=== PATIENT | female | born 1970 | race Caucasian/White ===

== ENCOUNTER 2016-07-22 13:55 | Emergency (ER) | payer SELFPAY ==
--- NOTE | 2016-07-22 17:25 | ER Document Report ---
Addendum entered and electronically signed by CESAR BEYER FNP 12:19: Discharge - Discharge Clinical Impression: Strain of right thumb Qualifiers: Encounter type: initial encounter Qualified Code(s): S66.911A - Strain of unspecified muscle, fascia and tendon at wrist and hand level, right hand, initial encounter Condition: Stable Disposition: HOME, SELF-CARE Prescriptions: Naproxen Sodium [Naproxen Sodium ER] 500 mg PO Q12 PRN #20 tablet.sa PRN Reason: Tramadol HCl [Ultram 50 mg Tablet] 50 mg PO ASDIR PRN #10 tablet PRN Reason: Referrals: MAXIMILIANO HOUSTON MD [ACTIVE STAFF] - Follow up as needed Original Note: ED Hand/Wrist Injury - General Chief Complaint: Hand Injury Stated Complaint: POSSIBLE RIGHT HAND INJURY TRAVEL OUTSIDE OF THE [place] IN LAST 30 DAYS: No - HPI Patient complains to provider of: wirst pain Injury to: Wrist Onset: Yesterday Where: Work Timing: Constant - Related Data Allergies/Adverse Reactions: codeine [Codeine] Adverse Reaction (Verified 07/22/16 14:37) Past Medical History - General Last Menstrual Period: 06/21/16 - Social History Smoking Status: Never Smoker Cigarette use (# per day): No Chew tobacco use (# tins/day): No Frequency of alcohol use: Social Drug Abuse: None Family History: Reviewed & Not Pertinent Patient has suicidal ideation: No Patient has homicidal ideation: No Psychiatric Medical History: Reports: Hx Attention Deficit Hyperactivity Disorder Past Surgical History: Reports: Hx Section - 2, Hx Cholecystectomy, Hx Gynecologic Surgery - uterine albation, Hx Orthopedic Surgery - right shoulder, Hx Tubal Ligation - Immunizations Hx Diphtheria, Pertussis, Tetanus Vaccination: Yes Review of Systems - Review of Systems Constitutional: No symptoms reported EENT: No symptoms reported Cardiovascular: No symptoms reported Respiratory: No symptoms reported Gastrointestinal: No symptoms reported Genitourinary: No symptoms reported Female Genitourinary: No symptoms reported Musculoskeletal: Muscle pain, Other - wrist / thumb pain to right hand Skin: No symptoms reported Hematologic/Lymphatic: No symptoms reported Neurological/Psychological: No symptoms reported Physical Exam - Vital signs Vitals: Temp Pulse Resp BP Pulse Ox 98.0 F 69 18 137/92 H 100 07/22/16 14:08 07/22/16 14:08 07/22/16 14:08 07/22/16 14:08 07/22/16 14:08 Interpretation: Normal - General General appearance: Appears well, Alert - HEENT Head: Normocephalic, Atraumatic Eyes: Normal Pupils: PERRL - Respiratory Respiratory status: No respiratory distress Chest status: Nontender Breath sounds: Normal Chest palpation: Normal - Cardiovascular Rhythm: Regular Heart sounds: Normal auscultation Murmur: No - Abdominal Inspection: Normal Distension: No distension Bowel sounds: Normal Tenderness: Nontender Organomegaly: No organomegaly - Back Back: Normal, Nontender - Extremities General upper extremity: Normal inspection, Nontender, Normal color, Normal ROM , Normal temperature General lower extremity: Normal inspection, Nontender, Normal color, Normal ROM , Normal temperature, Normal weight bearing. No: Tip's sign Wrist: Tender - Right wrist Hand: Tender - Right wrist, thenar space good motion from first to second third and fourth fifth digits neurovascularly intact rapid capillary refill to all extremities - Neurological Neuro grossly intact: Yes Cognition: Normal Orientation: AAOx4 Walt Coma Scale Eye Opening: Spontaneous Walt Coma Scale Verbal: Oriented Walt Coma Scale Motor: Obeys Commands Walt Coma Scale Total: 15 Speech: Normal Motor strength normal: LUE, RUE, LLE, RLE Sensory: Normal - Psychological Associated symptoms: Normal affect, Normal mood - Skin Skin Temperature: Warm Skin Moisture: Dry Skin Color: Normal Course - Vital Signs Vital signs: Temp Pulse Resp BP Pulse Ox 98.0 F 69 18 137/92 H 100 07/22/16 14:08 07/22/16 14:07/22/16 14:07/22/16 14:08 07/22/16 14:08 - Diagnostic Test Radiology reviewed: Reports reviewed Discharge - Discharge Clinical Impression: Strain of thumb, right Disposition: HOME, SELF-CARE Prescriptions: Naproxen Sodium [Naproxen Sodium ER] 500 mg PO Q12 PRN #20 tablet.sa PRN Reason: Tramadol HCl [Ultram 50 mg Tablet] 50 mg PO ASDIR PRN #10 tablet PRN Reason: Referrals: MAXIMILIANO HOUSTON MD [ACTIVE STAFF] - Follow up as needed
[2016-07-22 18:23] VITALS: BP 99/65
== END 2016-07-22 17:35 | disposition home or self-care (01) ==
LOC: ER 13:55
DX: S66.911A Strain of unspecified muscle, fascia and tendon at wrist and hand level, right hand, initial encounter (principal); X58.XXXA Exposure to other specified factors, initial encounter; Y93.H3 Activity, building and construction; Y99.0 Civilian activity done for income or pay; M79.1 Myalgia
CPT/HCPCS: 99283

== ENCOUNTER 2016-12-22 21:38 | Emergency (ER) | payer SELFPAY ==
--- NOTE | 2016-12-22 22:27 | RADIOLOGY REPORT (SQ) ---
EXAM DESCRIPTION: CHEST PA/LAT COMPLETED DATE/TIME: 12/22/2016 10:03 pm REASON FOR STUDY: SOB COMPARISON: None. EXAM PARAMETERS: NUMBER OF VIEWS: two views TECHNIQUE: Digital Frontal and Lateral radiographic views of the chest acquired. RADIATION DOSE: NA LIMITATIONS: none FINDINGS: LUNGS AND PLEURA: No opacities, masses or pneumothorax. No pleural effusion. MEDIASTINUM AND HILAR STRUCTURES: No masses or contour abnormalities. HEART AND VASCULAR STRUCTURES: Heart normal size. No evidence for failure. BONES: No acute findings. HARDWARE: None in the chest. OTHER: No other significant finding. IMPRESSION: NO SIGNIFICANT RADIOGRAPHIC FINDING IN THE CHEST. TECHNICAL DOCUMENTATION: JOB ID: [id number] [employer]- All Rights Reserved
[2016-12-23] MEDS ORDERED: ALBUTEROL SULFATE 0.083% NEB 2.5 MG/3 ML AMPUL NEB ONE (00:30)
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
[2016-12-23 00:51] LABS: ABSOLUTE BASOPHILS # (AUTO) 0.1 10^3/uL (0.0-0.2); ABSOLUTE EOSINOPHILS # (AUTO) 0.6 10^3/uL (0.0-0.6); ABSOLUTE LYMPHOCYTES (AUTO) 3.1 10^3/uL (0.5-4.7); ABSOLUTE MONOCYTES (AUTO) 0.7 10^3/uL (0.1-1.4); ABSOLUTE NEUT (AUTO) 2.9 10^3/uL (1.7-8.2); BASOPHILS % (AUTO) 1.3 % (0-2); HEMATOCRIT 38.3 % (36.0-47.0); HEMOGLOBIN 12.8 g/dL (12.0-15.5); HGB HCT DIFFERENCE 0.1; LYMPHOCYTES % (AUTO) 41.7 % (13-45); MEAN CORPUSCULAR HEMOGLOBIN 32.9 pg (27.0-33.4); MEAN CORPUSCULAR HGB CONC 33.3 g/dL (32.0-36.0); MEAN CORPUSCULAR VOLUME 99 fl (80-97); MONOCYTES % (AUTO) 9.9 % (3-13); RED BLOOD COUNT 3.87 10^6/uL (3.72-5.28); RED CELL DISTRIBUTION WIDTH 12.7 % (11.5-14.0); SEGMENTED NEUTROPHILS % (AUTO) 39.1 % (42-78); WHITE BLOOD COUNT 7.4 10^3/uL (4.0-10.5)
[2016-12-23 00:59] LABS: ALANINE AMINOTRANSFERASE 67 U/L (9-52); ALBUMIN 4.2 g/dL (3.5-5.0); ALKALINE PHOSPHATASE 59 U/L (38-126); ANION GAP 14 (5-19); ASPARTATE AMINO TRANSFERASE 109 U/L (14-36); BILIRUBIN,DIRECT 0.3 mg/dL (0.0-0.4); BILIRUBIN,TOTAL 0.4 mg/dL (0.2-1.3); BLOOD UREA NITROGEN 6 mg/dL (7-20); CALCIUM 8.7 mg/dL (8.4-10.2); CARBON DIOXIDE 24 mmol/L (22-30); CHLORIDE 103 mmol/L (98-107); CREATININE RESULT 0.62 mg/dL (0.52-1.25); GLUCOSE 89 mg/dL (75-110); POTASSIUM 3.9 mmol/L (3.6-5.0); SODIUM 140.9 mmol/L (137-145)
[2016-12-23 01:06] LABS: AMORPHOUS SEDIMENT,URINE TRACE /HPF; APPEARANCE,URINE SLIGHTLY-CLOUDY; BILIRUBIN,URINE NEGATIVE (NEGATIVE); GLUCOSE, URINE NEGATIVE (NEGATIVE); KETONES,URINE NEGATIVE (NEGATIVE); LEUKOCYTE ESTERASE,URINE NEGATIVE (NEGATIVE); NITRITE,URINE NEGATIVE (NEGATIVE); PROTEIN,URINE NEGATIVE (NEGATIVE); URINE SPECIFIC GRAVITY 1.009; UROBILINOGEN,URINE NEGATIVE mg/dL (<2.0)
[2016-12-23] MEDS ORDERED: ALBUTEROL SULFATE HFA (90 MCG/PUFF) 8 GM MDI (1 MDI/ER DISP) IH PRN (01:53)
[2016-12-23 02:12] VITALS: BP 119/76
== END 2016-12-23 02:12 | disposition home or self-care (01) ==
LOC: ER 21:38
DX: J40 Bronchitis, not specified as acute or chronic (principal); J31.0 Chronic rhinitis; R42 Dizziness and giddiness; R06.02 Shortness of breath; R53.1 Weakness; R07.89 Other chest pain; M54.5 Low back pain; Z87.01 Personal history of pneumonia (recurrent)
CPT/HCPCS: 94640; 99285; 36415; 87086; 85025; 80053; 81001; 71020; J3490

== ENCOUNTER 2017-01-22 17:08 | Emergency (ER) | payer SELFPAY ==
[2017-01-22 18:04] LABS: ABSOLUTE BASOPHILS # (AUTO) 0.1 10^3/uL (0.0-0.2); ABSOLUTE EOSINOPHILS # (AUTO) 0.2 10^3/uL (0.0-0.6); ABSOLUTE LYMPHOCYTES (AUTO) 1.1 10^3/uL (0.5-4.7); ABSOLUTE MONOCYTES (AUTO) 0.4 10^3/uL (0.1-1.4); ABSOLUTE NEUT (AUTO) 3.5 10^3/uL (1.7-8.2); BASOPHILS % (AUTO) 2.4 % (0-2); EOSINOPHILS % (AUTO) 3.2 % (0-6); HEMATOCRIT 35.5 % (36.0-47.0); HEMOGLOBIN 11.6 g/dL (12.0-15.5); HGB HCT DIFFERENCE -0.7; LYMPHOCYTES % (AUTO) 20.2 % (13-45); MEAN CORPUSCULAR HEMOGLOBIN 32.4 pg (27.0-33.4); MEAN CORPUSCULAR HGB CONC 32.6 g/dL (32.0-36.0); MEAN CORPUSCULAR VOLUME 99 fl (80-97); MONOCYTES % (AUTO) 7.5 % (3-13); RED BLOOD COUNT 3.57 10^6/uL (3.72-5.28); RED CELL DISTRIBUTION WIDTH 13.4 % (11.5-14.0); SEGMENTED NEUTROPHILS % (AUTO) 66.7 % (42-78); WHITE BLOOD COUNT 5.3 10^3/uL (4.0-10.5)
[2017-01-22 18:10] LABS: APPEARANCE,URINE CLEAR; BILIRUBIN,URINE NEGATIVE (NEGATIVE); GLUCOSE, URINE NEGATIVE (NEGATIVE); KETONES,URINE TRACE mg/dL (NEGATIVE); LEUKOCYTE ESTERASE,URINE NEGATIVE (NEGATIVE); NITRITE,URINE NEGATIVE (NEGATIVE); PROTEIN,URINE NEGATIVE (NEGATIVE); URINE SPECIFIC GRAVITY 1.002; UROBILINOGEN,URINE NEGATIVE mg/dL (<2.0)
--- NOTE | 2017-01-22 18:12 | EKG REPORT ---
SEVERITY:- ABNORMAL ECG - SINUS RHYTHM LA ABNORMALITY LATE TRANSITION. : Confirmed by: Tarun Rizo MD 22-Jan-2017 18:11:47
[2017-01-22 18:17] LABS: ALANINE AMINOTRANSFERASE 88 U/L (9-52); ALBUMIN 3.8 g/dL (3.5-5.0); ALKALINE PHOSPHATASE 70 U/L (38-126); ANION GAP 14 (5-19); ASPARTATE AMINO TRANSFERASE 186 U/L (14-36); BILIRUBIN,DIRECT 0.3 mg/dL (0.0-0.4); BILIRUBIN,TOTAL 0.7 mg/dL (0.2-1.3); BLOOD UREA NITROGEN 4 mg/dL (7-20); CALCIUM 8.4 mg/dL (8.4-10.2); CARBON DIOXIDE 19 mmol/L (22-30); CHLORIDE 106 mmol/L (98-107); CREATINE KINASE 338 U/L (30-135); CREATININE RESULT 0.61 mg/dL (0.52-1.25); GLUCOSE 90 mg/dL (75-110); POTASSIUM 3.9 mmol/L (3.6-5.0); SODIUM 138.6 mmol/L (137-145); TOTAL PROTEIN 7.2 g/dL (6.3-8.2)
[2017-01-22 18:29] LABS: CREATINE KINASE MB 3.98 ng/mL (<4.55)
[2017-01-22 18:31] LABS: TROPONIN I < 0.012 ng/mL
--- NOTE | 2017-01-22 18:32 | RADIOLOGY REPORT (SQ) ---
EXAM DESCRIPTION: CHEST SINGLE VIEW COMPLETED DATE/TIME: 01/22/2017 6:15 pm REASON FOR STUDY: chest pain COMPARISON: 12/22/2016 EXAM PARAMETERS: NUMBER OF VIEWS: One view. TECHNIQUE: Single frontal radiographic view of the chest acquired. RADIATION DOSE: NA LIMITATIONS: None. FINDINGS: LUNGS AND PLEURA: No opacities, masses or pneumothorax. No pleural effusion. MEDIASTINUM AND HILAR STRUCTURES: No masses. Contour normal. HEART AND VASCULAR STRUCTURES: Heart normal in size. Normal vasculature. BONES: No acute findings. HARDWARE: None in the chest. OTHER: No other significant finding. IMPRESSION: NO ACUTE RADIOGRAPHIC FINDING IN THE CHEST. TECHNICAL DOCUMENTATION: JOB ID: [id number]
[2017-01-22 18:37] LABS: ADD ON TESTING BLD IN LAB ACKNOWLEDGE
--- NOTE | 2017-01-22 18:42 | ER Document Report ---
ED General - General Mode of Arrival: Ambulatory Information source: Patient TRAVEL OUTSIDE OF THE [place] IN LAST 30 DAYS: No - HPI Onset: Other - Refer to HPI note Similar symptoms previously: Yes Recently seen / treated by doctor: Yes <MIRTA MEDRANO - Last Filed: 01/22/17 19:59> <RAFAEL AMBRIZ - Last Filed: 01/22/17 20:42> - General Chief Complaint: Chest Pain Stated Complaint: CHEST PAIN Time Seen by Provider: 01/22/17 18:30 Notes: Patient is a 46-year old female presenting to the emergency department for dizziness, weakness, shortness of breath and some nausea. Patient states that she was diagnosed with bronchitis at [facility] and she was seen here at [facility] on 12/22/16 for the same symptoms and diagnosed with bronchitis as well. Patient states that she was also diagnosed with vertigo at [facility] 1.5 weeks ago. Patient states the Meclizine has not helped much but she took 1 dose of 25 mg today at work. Patient also complains of some chest pressure which she relates to an anxiety attack; patient states she thought she was having a heart attack. Patient was recently taking Xanax and Adderall for her anxiety and ADHD but stopped 1 month ago when she changed providers. Patient also states that nothing tastes right and she has some congestion and cough. Patient's cough is worse at night. Patient is allergic to codeine. (MIRTA MEDRANO) This 38-year-old female patient comes emergency room complaining of dizziness, chest pain, feeling like her breathing stops at night for several months, anxiety, tightness in her throat,. She reports she has been seen in [place] twice and was here 1 month ago. Visit here on 12/22/2016 had basically the same complaints. She was recently diagnosed with vertigo [facility], and was put on Antivert. She did not take the Antivert until tonight and took one pill and it did not immediately work. She had been receiving 40 Xanax 0.25mg every 2 months and taking Adderall. These medications were stopped about a month ago. (RAFAEL AMBRIZ) - Related Data Allergies/Adverse Reactions: codeine [Codeine] Adverse Reaction (Verified 01/22/17 18:04) Home Medications: Current Home Medications Meclizine HCl [Antivert 12.5 mg Tablet] 12.5 mg PO BID PRN 01/22/17 [History] Past Medical History - General Information source: Patient - Social History Smoking Status: Never Smoker Cigarette use (# per day): No Chew tobacco use (# tins/day): No Frequency of alcohol use: Occasional Drug Abuse: None Family History: None Patient has suicidal ideation: No Patient has homicidal ideation: No Pulmonary Medical History: Reports: Hx Bronchitis, Hx Pneumonia Psychiatric Medical History: Reports: Hx Anxiety, Hx Attention Deficit Hyperactivity Disorder Past Surgical History: Reports: Hx Section - 2, Hx Cholecystectomy, Hx Gynecologic Surgery - uterine albation, Hx Orthopedic Surgery - right shoulder, Hx Tubal Ligation - Immunizations Hx Diphtheria, Pertussis, Tetanus Vaccination: Yes <MIRTA MEDRANO - Last Filed: 01/22/17 19:59> Review of Systems - Review of Systems Constitutional: See HPI, Malaise, Weakness EENT: No symptoms reported Cardiovascular: See HPI, Dizziness Respiratory: See HPI, Cough Gastrointestinal: See HPI, Nausea Genitourinary: No symptoms reported Female Genitourinary: No symptoms reported Musculoskeletal: No symptoms reported Skin: No symptoms reported Hematologic/Lymphatic: No symptoms reported Neurological/Psychological: No symptoms reported -: Yes All other systems reviewed and negative <MIRTA MEDRANO - Last Filed: 01/22/17 19:59> Physical Exam - Vital signs Interpretation: Normal <MIRTA MEDRANO - Last Filed: 01/22/17 19:59> <RAFAEL AMBRIZ - Last Filed: 01/22/17 20:42> - Vital signs Vitals: Temp Pulse Resp BP Pulse Ox 98.0 F 71 20 103/63 100 01/22/17 17:10 01/22/17 17:10 01/22/17 17:10 01/22/17 17:10 01/22/17 17:10 - Notes Notes: GENERAL: Alert, interacts well. No acute distress. HEAD: Normocephalic, atraumatic. EYES: Pupils equal, round, and reactive to light. Extraocular movements intact, no nystagmus. Patient has increased dizziness after moving head and eyes back and forth/up and down. ENT: Oral mucosa moist, tongue midline. NECK: Full range of motion. Supple. Trachea midline. LUNGS: Clear to auscultation bilaterally, no wheezes, rales, or rhonchi. No respiratory distress. HEART: Regular rate and rhythm. No murmurs, gallops, or rubs. ABDOMEN: Soft, generalized abdominal pain. Non-distended. Bowel sounds present in all 4 quadrants. EXTREMITIES: Moves all 4 extremities spontaneously. No edema. NEUROLOGICAL: Alert and oriented x3. Normal speech. PSYCH: Normal affect, normal mood. SKIN: Warm, dry, normal turgor. No rashes or lesions noted. (MIRTA MEDRANO) Course - Laboratory Result Diagrams: 01/22/17 17:17 01/22/17 17:17 <MIRTA MEDRANO - Last Filed: 01/22/17 19:59> - Laboratory Result Diagrams: 01/22/17 17:17 01/22/17 17:17 - Diagnostic Test Radiology reviewed: Image reviewed, Reports reviewed - Chest X-ray is normal. - EKG Interpretation by Ar EKG shows normal: Sinus rhythm, [place], Intervals, QRS Complexes, ST-T Waves Rate: Normal - 75 Rhythm: NSR <RAFAEL AMBRIZ - Last Filed: 01/22/17 20:42> - Vital Signs Vital signs: Temp Pulse Resp BP Pulse Ox 98.0 F 71 20 98/69 L 100 01/22/17 17:10 01/22/17 17:10 01/22/17 19:01 01/22/17 19:01 01/22/17 19:01 - Laboratory Laboratory results interpreted by me: 01/22/17 01/22/17 01/22/17 17:17 17:17 17:40 RBC 3.57 L Hgb 11.6 L Hct 35.5 L MCV 99 H Plt Count 146 L Basophils % 2.4 H Carbon Dioxide 19 L BUN 4 L AST 186 H ALT 88 H Creatine Kinase 338 H Urine Ketones TRACE H Discharge <MIRTA MEDRANO - Last Filed: 01/22/17 19:59> <RAFAEL AMBRIZ - Last Filed: 01/22/17 20:42> - Discharge Clinical Impression: Vertigo, Anxiety Chest pain Qualifiers: Chest pain type: unspecified Qualified Code(s): R07.9 - Chest pain, unspecified Condition: Stable Disposition: HOME, SELF-CARE Additional Instructions: Vertigo: You have experienced an episode of vertigo -- a whirling dizziness which may be accompanied by nausea and vomiting or staggering. Vertigo is often caused by an irritation of the inner ear, in which case it is called labyrinthitis. It can also be a symptom of a degenerating inner ear, nerve damage, or brain injury. Your physician has evaluated you to determine whether any further testing is necessary. Vertigo is often treated with dramamine or meclizine. These medications are helpful, but stronger medication may be needed if you are vomiting. Rest in bed. You should not drive or operate machinery until completely better. It may take one to three weeks for recovery. If there are new symptoms, such as decreased hearing or vision, severe headache, weakness or faintness, or confusion, call the physician. Anxiety: The physician feels that some of your health problems are being caused by anxiety. Anxiety affects your health in many ways. Anxiety alone can cause palpitations, sweats, chest pains, abdominal pains, shortness of breath, and headaches. It contributes to ulcer disease, high blood pressure, irritable bowel syndrome, and has been shown to cause flare-ups of many other diseases. Anxiety is not a simple disorder to treat. If the anxiety is due to recent life stresses, you may simply need time to "work through" the changes. If the anxiety is due to an underlying unhappiness with yourself or due to psychiatric disturbance, professional help will be needed. Your physician can refer you for further help if needed. Anti-anxiety medication is occasionally given if the stress is acute or if you are having trouble sleeping. Chronic or frequent use of these medications is not a good idea because the body becomes reliant on it, preventing you from dealing with life's normal stresses. Chest Pain of Unclear Cause: The exact cause of your chest pain isn't clear. Fortunately, there is no evidence of a dangerous medical condition. Further testing may be required to find the source of the pain. Most often, we find that this pain is coming from the chest wall -- the muscles or rib joints in the chest. But chest pain can come from the lung and lung lining, the esophagus, the heart valves or heart lining, and even the stomach or gallbladder. Rest. Eat lightly until the pain is gone. We may prescribe medicine for pain and inflammation. You should call the physician immediately if the pain radiates to the shoulder, jaw or arms; if you start to run a fever or develop a cough; or if you develop shortness of breath, or other new or alarming symptoms. TAKE YOUR ANTIVERT FOR DIZZINESS-TAKE 2 TABLETS IF NEEDED. GET PLENTY OF REST. FOLLOW UP WITH A LOCAL MEDICAL DOCTOR IF NOT IMPROVING. RETURN TO THE EMERGENCY ROOM IF ANY NEW OR WORSENING SYMPTOMS. Evaibe Attestation: 01/22/17 20:39 I personally performed the services described in the documentation, reviewed and edited the documentation which was dictated to the scribe in my presence, and it accurately records my words and actions. (RAFAEL AMBRIZ) Scribe Documentation - Scribe Written by Patrice:: Patrice Ramsey 01/22/2017 20:05 acting as scribe for :: Mynor <MIRTA MEDRANO - Last Filed: 01/22/17 19:59>
[2017-01-22] MEDS ORDERED: LORAZEPAM INJ 2 MG/1 ML VIAL IV ONE (18:43)
[2017-01-22] MEDS ORDERED: DEXTROSE 5%-LACTATED RINGERS 1,000 ML IV ONE (18:43)
[2017-01-22 21:07] VITALS: BP 93/78
== END 2017-01-22 21:05 | disposition home or self-care (01) ==
LOC: ER 17:08
DX: R07.9 Chest pain, unspecified (principal); R42 Dizziness and giddiness; F41.9 Anxiety disorder, unspecified; R53.1 Weakness; R06.02 Shortness of breath; R11.0 Nausea; Z79.899 Other long term (current) drug therapy
CPT/HCPCS: 93005; 99285; 96375; 96365; 36415; 82553; 82550; 83690; 85025; 80053; 81001; 84484; 71010; 93010; J2060

== ENCOUNTER 2017-08-11 14:48 | Emergency (ER) | payer SELFPAY ==
[2017-08-11] MEDS ORDERED: ASPIRIN 81 MG TABLET, CHEWABLE PO ONE (18:55)
[2017-08-11] MEDS ORDERED: ALPRAZOLAM 0.5 MG TABLET PO ONE (18:55)
--- NOTE | 2017-08-11 18:59 | ER Document Report ---
ED Medical Screen (RME) - General Chief Complaint: Chest Pain Stated Complaint: CHEST PAIN Time Seen by Provider: 08/11/17 18:50 Mode of Arrival: Ambulatory Information source: Patient Notes: Pt is a 46-year-old female with a history of anxiety and depression who used to be on Adderall and Xanax and has not been for quite some time who presents to the ER today for chest pain, shortness of breath, feeling like her throat is closing up, numbness to both of her hands and feet and her entire face. Patient has a history of panic attacks and states that that is what this feels like. She states that her symptoms started after she stopped Adderall and Xanax and have been worsening. She states that she cannot sleep due to her symptoms now. TRAVEL OUTSIDE OF THE [place] IN LAST 30 DAYS: No - Related Data Allergies/Adverse Reactions: codeine [Codeine] Adverse Reaction (Verified 08/11/17 14:49) Past Medical History - General Information source: Patient - Social History Chew tobacco use (# tins/day): No Frequency of alcohol use: None Drug Abuse: None Pulmonary Medical History: Reports: Hx Bronchitis, Hx Pneumonia Renal/ Medical History: Denies: Hx Peritoneal Dialysis GI Medical History: Reports: Hx Gastroesophageal Reflux Disease Psychiatric Medical History: Reports: Hx Anxiety, Hx Attention Deficit Hyperactivity Disorder - anxiety Past Surgical History: Reports: Hx Section - 2, Hx Cholecystectomy, Hx Gynecologic Surgery - uterine albation, Hx Orthopedic Surgery - right shoulder, Hx Tubal Ligation - Immunizations Hx Diphtheria, Pertussis, Tetanus Vaccination: Yes Review of Systems - Review of Systems Cardiovascular: See HPI Respiratory: See HPI Neurological/Psychological: See HPI Physical Exam - Vital signs Vitals: Temp Pulse Resp BP Pulse Ox 97.7 F 96 20 131/88 H 97 08/11/17 15:07 08/11/17 15:07 08/11/17 15:08/11/17 15:07 08/11/17 15:07 - Notes Notes: PHYSICAL EXAMINATION: GENERAL: Incredibly anxious appearing, will not stop shaking, but in no acute distress. ENT: Airway patent Course - Vital Signs Vital signs: Temp Pulse Resp BP Pulse Ox 97.7 F 96 20 131/88 H 97 08/11/17 15:07 08/11/17 15:07 08/11/17 15:07 08/11/17 15:07 08/11/17 15:07
--- NOTE | 2017-08-11 19:30 | RADIOLOGY REPORT (SQ) ---
EXAM DESCRIPTION: CHEST SINGLE VIEW COMPLETED DATE/TIME: 08/11/2017 7:18 pm REASON FOR STUDY: chest pain COMPARISON: 01/22/2017. EXAM PARAMETERS: NUMBER OF VIEWS: One view. TECHNIQUE: Single frontal radiographic view of the chest acquired. RADIATION DOSE: NA LIMITATIONS: None. FINDINGS: LUNGS AND PLEURA: No opacities, masses or pneumothorax. No pleural effusion. MEDIASTINUM AND HILAR STRUCTURES: No masses. Contour normal. HEART AND VASCULAR STRUCTURES: Heart normal in size. Normal vasculature. BONES: No acute findings. HARDWARE: None in the chest. OTHER: No other significant finding. IMPRESSION: NO ACUTE RADIOGRAPHIC FINDING IN THE CHEST. TECHNICAL DOCUMENTATION: JOB ID: [id number] [employer]- All Rights Reserved
[2017-08-11 19:43] LABS: APPEARANCE,URINE TURBID; BILIRUBIN,URINE NEGATIVE (NEGATIVE); COLOR,URINE YELLOW; GLUCOSE, URINE NEGATIVE (NEGATIVE); KETONES,URINE NEGATIVE (NEGATIVE); LEUKOCYTE ESTERASE,URINE NEGATIVE (NEGATIVE); NITRITE,URINE NEGATIVE (NEGATIVE); PROTEIN,URINE NEGATIVE (NEGATIVE); URINE SPECIFIC GRAVITY 1.024; UROBILINOGEN,URINE NEGATIVE mg/dL (<2.0)
--- NOTE | 2017-08-11 21:16 | ER Document Report ---
ED General - General Chief Complaint: Chest Pain Stated Complaint: CHEST PAIN Time Seen by Provider: 08/11/17 18:50 Mode of Arrival: Ambulatory Notes: Patient is a 46-year-old female that comes emergency department for chief complaint of a "panic attack". She states that she gets these frequently since her medications ran out, she had a primary care appointment today that she did not make it to, she states that earlier today she had an episode where she felt tightness in her chest, shortness of breath, sensation like her throat would close up, and a sensation of numbness over her body. She states she is also had difficulty sleeping lately as well. She denies smoking, hypertension, diabetes. Her mother had a heart attack. Patient has had a negative chest pain workups in the past. TRAVEL OUTSIDE OF THE [place] IN LAST 30 DAYS: No - Related Data Allergies/Adverse Reactions: codeine [Codeine] Adverse Reaction (Verified 08/11/17 14:49) Past Medical History - General Information source: Patient - Social History Smoking Status: Never Smoker Chew tobacco use (# tins/day): No Frequency of alcohol use: None Drug Abuse: None Lives with: Family Family History: None Patient has suicidal ideation: No Patient has homicidal ideation: No Pulmonary Medical History: Reports: Hx Bronchitis, Hx Pneumonia Renal/ Medical History: Denies: Hx Peritoneal Dialysis GI Medical History: Reports: Hx Gastroesophageal Reflux Disease Psychiatric Medical History: Reports: Hx Anxiety, Hx Attention Deficit Hyperactivity Disorder - anxiety Past Surgical History: Reports: Hx Section - 2, Hx Cholecystectomy, Hx Gynecologic Surgery - uterine albation, Hx Orthopedic Surgery - right shoulder, Hx Tubal Ligation - Immunizations Hx Diphtheria, Pertussis, Tetanus Vaccination: Yes Review of Systems - Review of Systems Constitutional: No symptoms reported EENT: No symptoms reported Cardiovascular: See HPI Respiratory: See HPI Gastrointestinal: No symptoms reported Genitourinary: No symptoms reported Female Genitourinary: No symptoms reported Musculoskeletal: No symptoms reported Skin: No symptoms reported Hematologic/Lymphatic: No symptoms reported Neurological/Psychological: See HPI Physical Exam - Vital signs Vitals: Temp Pulse Resp BP Pulse Ox 97.7 F 96 20 131/88 H 97 08/11/17 15:07 08/11/17 15:07 08/11/17 15:07 08/11/17 15:07 08/11/17 15:07 Interpretation: Normal - General General appearance: Alert In distress: None - HEENT Head: Normocephalic, Atraumatic Eyes: Normal Pupils: PERRL - Respiratory Respiratory status: No respiratory distress. No: Respiratory distress, Tachypnea Chest status: Nontender Breath sounds: Normal. No: Decreased air movement, Wheezing Chest palpation: Normal - Cardiovascular Rhythm: Regular. No: Tachycardia Heart sounds: Normal auscultation, S1 appreciated, S2 appreciated Murmur: No - Abdominal Inspection: Normal Distension: No distension Bowel sounds: Normal Tenderness: Nontender. No: Tender, Guarding Organomegaly: No organomegaly - Back Back: Normal, Nontender. No: Tender - Extremities General upper extremity: Normal inspection, Nontender, Normal color, Normal ROM , Normal temperature General lower extremity: Normal inspection, Nontender, Normal color, Normal ROM , Normal temperature, Normal weight bearing. No: Tip's sign - Neurological Neuro grossly intact: Yes Cognition: Normal Orientation: AAOx4 [place] Coma Scale Eye Opening: Spontaneous [place] Coma Scale Verbal: Oriented [place] Coma Scale Motor: Obeys Commands [place] Coma Scale Total: 15 Speech: Normal Motor strength normal: LUE, RUE, LLE, RLE Sensory: Normal - Psychological Associated symptoms: Other - Patient with stimulants, speaks rapidly and with a high pitch, slightly shaky, however she is attentive, cooperative, makes good eye contact - Skin Skin Temperature: Warm Skin Moisture: Dry Skin Color: Normal Course - Re-evaluation Re-evalutation: On my evaluation of the patient patient is requesting to leave. She states her symptoms have much improved after medications, she states she is unwilling to wait for additional evaluation. Recommended completing cardiac workup including troponins based on her age and complaint of chest pain, however she states she has had negative workups in the past, symptoms earlier were consistent with her regular panic attacks. is also here, he states that they really need something for her to take temporarily as they try to follow-up with her primary care over the next day or 2 for her anxiety and insomnia. I did agree to provide her with a very small amount of medication for this pending her follow-up. Patient is to return if she develops any chest pain, shortness of breath, or worsening symptoms otherwise. Patient EKG is unchanged from prior, chest x-ray is unremarkable, urinalysis unremarkable. Discharged with return precautions. - Vital Signs Vital signs: Temp Pulse Resp BP Pulse Ox 98.9 F 91 16 129/98 H 99 08/11/17 21:23 08/11/17 21:23 08/11/17 21:23 08/11/17 21:23 08/11/17 21:23 Discharge - Discharge Clinical Impression: Anxiety, Panic attack Condition: Stable Disposition: HOME, SELF-CARE Additional Instructions: Your EKG and chest x-ray showed no concerning abnormalities. Take the medication provided only if needed in the event of panic attack, please follow-up closely with your primary care as planned for additional management. Return for any concerning or worsening symptoms including difficulty breathing, chest pain, or any other concerning symptoms. Prescriptions: Lorazepam 1 mg PO Q4H PRN #12 tablet PRN Reason:
[2017-08-11 21:25] VITALS: BP 129/98
--- NOTE | 2017-08-12 08:53 | EKG REPORT ---
SEVERITY:- NORMAL ECG - SINUS RHYTHM : Confirmed by: Florencia Russo MD 12-Aug-2017 08:51:31
== END 2017-08-11 21:25 | disposition home or self-care (01) ==
LOC: ER 14:48
DX: F41.0 Panic disorder [episodic paroxysmal anxiety] (principal); F41.9 Anxiety disorder, unspecified; R07.9 Chest pain, unspecified; R06.02 Shortness of breath
CPT/HCPCS: 71045; 81001; 93005; 93010; 99284

== ENCOUNTER 2019-08-24 23:23 | Emergency (ER) | payer SELFPAY | END 2019-08-25 03:30 | disposition left against medical advice (07) | LOC: ER 23:23 | DX: Z53.21 Procedure and treatment not carried out due to patient leaving prior to being seen by health care provider (principal) ==

== ENCOUNTER 2019-09-14 09:23 | Emergency (ER) | payer SELFPAY ==
--- NOTE | 2019-09-14 11:26 | ER Document Report ---
ED Medical Screen (RME) - General Chief Complaint: Chest Tightness Stated Complaint: CHEST PAIN Time Seen by Provider: 09/14/19 11:14 Notes: HPI: 48-year-old female presenting to the emergency department complaining of 3 days of shortness of breath and feeling that she cannot catch her breath with left-sided chest discomfort. No fever. Patient states that she did have epigastric abdominal pain with some nausea vomiting for 5 days ago. She has not had a cough but states that when she tries to take a deep breath and she is unable to. No history of clotting disorders. No recent travel or prolonged immobilization. Patient states she does have history of prior pneumothorax but states that this was progressive and not sudden in onset. Patient reports a history of anxiety but states this feels different. I have greeted and performed a rapid initial assessment of this patient. A comprehensive ED assessment and evaluation of the patient, analysis of test results and completion of the medical decision making process will be conducted by additional ED providers PHYSICAL EXAMINATION: GENERAL: Well-appearing, well-nourished and in mild acute distress. HEAD: Atraumatic, normocephalic. EYES: sclera anicteric, conjunctiva are normal. ENT: Moist mucous membranes. NECK: Normal range of motion LUNGS: Patient becomes mildly dyspneic with speaking, lung sounds are clear to auscultation, patient does seem to gasp for a breath after speaking for a prolonged period HEART: 2+ radial pulses bilaterally, regular rate and rhythm ABD: limited by positioning for exam in triage. EXTREMITIES: no pitting or edema. No cyanosis. NEUROLOGICAL: No focal neurological deficits. Moves all extremities spontaneously and on command. PSYCH: Anxious mood, normal affect. SKIN: Warm, Dry, normal turgor, no rashes or lesions noted. TRAVEL OUTSIDE OF THE [place] IN LAST 30 DAYS: No - Related Data Allergies/Adverse Reactions: codeine [Codeine] Adverse Reaction (Verified 08/11/17 14:49) Home Medications: Out of adderrall. Out of Xanax Past Medical History - Social History Frequency of alcohol use: Heavy Drug Abuse: None Pulmonary Medical History: Reports: Hx Bronchitis, Hx Pneumonia Renal/ Medical History: Denies: Hx Peritoneal Dialysis GI Medical History: Reports: Hx Gastroesophageal Reflux Disease Psychiatric Medical History: Reports: Hx Anxiety, Hx Attention Deficit Hyperactivity Disorder - anxiety Past Surgical History: Reports: Hx Section - 2, Hx Cholecystectomy, Hx Gynecologic Surgery - uterine albation, Hx Orthopedic Surgery - right shoulder, Hx Tubal Ligation - Immunizations Hx Diphtheria, Pertussis, Tetanus Vaccination: Yes Physical Exam - Vital signs Vitals: Temp Pulse BP Pulse Ox 98.3 F 76 132/84 H 100 09/14/19 09:35 09/14/19 09:35 09/14/19 09:35 09/14/19 09:35 Course - Vital Signs Vital signs: Temp Pulse Resp BP Pulse Ox 98.3 F 76 132/84 H 100 09/14/19 09:35 09/14/19 09:35 09/14/19 09:35 09/14/19 09:35
--- NOTE | 2019-09-14 12:21 | RADIOLOGY REPORT (SQ) ---
EXAM DESCRIPTION: CHEST 2 VIEWS COMPLETED DATE/TIME: 09/14/2019 12:13 pm REASON FOR STUDY: sob COMPARISON: 08/11/2017 EXAM PARAMETERS: NUMBER OF VIEWS: two views TECHNIQUE: Digital Frontal and Lateral radiographic views of the chest acquired. RADIATION DOSE: NA LIMITATIONS: none FINDINGS: LUNGS AND PLEURA: No opacities, masses or pneumothorax. No pleural effusion. MEDIASTINUM AND HILAR STRUCTURES: No masses or contour abnormalities. HEART AND VASCULAR STRUCTURES: Heart normal size. No evidence for failure. BONES: No acute findings. HARDWARE: None in the chest. OTHER: No other significant finding. IMPRESSION: NO ACUTE RADIOGRAPHIC FINDING IN THE CHEST. TECHNICAL DOCUMENTATION: JOB ID: [id number] 2010 [employer]- All Rights Reserved Reading location - IP/workstation name: [email or web address]
[2019-09-14 12:24] LABS: INTERNATIONAL RATION (INR) 0.94; PROTHROMBIN TIME 12.5 SEC (11.4-15.4)
[2019-09-14 12:26] LABS: D-DIMER 0.96 ug/mL (0.00-0.50)
[2019-09-14 12:28] LABS: ABSOLUTE BASOPHILS # (AUTO) 0.1 10^3/uL (0.0-0.2); ABSOLUTE EOSINOPHILS # (AUTO) 0.2 10^3/uL (0.0-0.6); ABSOLUTE LYMPHOCYTES (AUTO) 1.7 10^3/uL (0.5-4.7); ABSOLUTE MONOCYTES (AUTO) 0.5 10^3/uL (0.1-1.4); ABSOLUTE NEUT (AUTO) 4.8 10^3/uL (1.7-8.2); BASOPHILS % (AUTO) 1.1 % (0-2); EOSINOPHILS % (AUTO) 3.3 % (0-6); HEMATOCRIT 37.2 % (36.0-47.0); HEMOGLOBIN 12.8 g/dL (12.0-15.5); LYMPHOCYTES % (AUTO) 23.8 % (13-45); MEAN CORPUSCULAR HEMOGLOBIN 33.5 pg (27.0-33.4); MEAN CORPUSCULAR HGB CONC 34.4 g/dL (32.0-36.0); MEAN CORPUSCULAR VOLUME 97 fl (80-97); MONOCYTES % (AUTO) 6.2 % (3-13); PLATELET COUNT 163 10^3/uL (150-450); RED BLOOD COUNT 3.82 10^6/uL (3.72-5.28); RED CELL DISTRIBUTION WIDTH 14.4 % (11.5-14.0); SEGMENTED NEUTROPHILS % (AUTO) 65.6 % (42-78); TOTAL CELLS COUNTED % (AUTO) 100 %; WHITE BLOOD COUNT 7.3 10^3/uL (4.0-10.5)
[2019-09-14 12:50] LABS: ALBUMIN 4.3 g/dL (3.5-5.0); ALKALINE PHOSPHATASE 65 U/L (38-126); ANION GAP 9 (5-19); ASPARTATE AMINO TRANSFERASE 64 U/L (14-36); BILIRUBIN,TOTAL 0.4 mg/dL (0.2-1.3); BLOOD UREA NITROGEN 8 mg/dL (7-20); CARBON DIOXIDE 23 mmol/L (22-30); CHLORIDE 106 mmol/L (98-107); GLUCOSE 110 mg/dL (75-110); POTASSIUM 4.4 mmol/L (3.6-5.0); TOTAL PROTEIN 8.2 g/dL (6.3-8.2)
[2019-09-14] MEDS ORDERED: ALPRAZOLAM 0.25 MG TABLET PO ONE (13:44)
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
--- NOTE | 2019-09-14 14:51 | RADIOLOGY REPORT (SQ) ---
EXAM DESCRIPTION: CTA CHEST COMPLETED DATE/TIME: 09/14/2019 2:41 pm REASON FOR STUDY: Left pleuritic pain with elevated d-dimer COMPARISON: Chest x-ray done earlier the same day. TECHNIQUE: CT scan of the chest performed using helical scanning technique with dynamic intravenous contrast injection. Images reviewed with lung, soft tissue and bone windows. Reconstructed coronal and sagittal MPR images reviewed. Additional 3 dimensional post-processing performed to develop Maximal Intensity Projection images (VT P). All images stored on PACS. All CT scanners at this facility use dose modulation, iterative reconstruction, and/or weight based d osing when appropriate to reduce radiation dose to as low as reasonably achievable (ALARA). [facility]: Dose Right [facility]: CareDose [facility]: Dose Right [facility]: Teradose 4D [facility]: MyStarAutograph CONTRAST TYPE AND DOSE: contrast/concentration: Isovue 350.00 mg/ml; Total Contrast Delivered: 51.0 ml; Total Saline Delivered: 63.0 ml Contrast bolus adequate for pulmonary arteries and aorta. RENAL FUNCTION: BUN 8, creatinine 0.5 RADIATION DOSE: CT Rad equipment meets quality standard of care and radiation dose reduction techniq ues were employed. CTDIvol: 3.3 - 14.3 mGy. DLP: 526 mGy-cm. . LIMITATIONS: None. FINDINGS: LUNGS AND PLEURA: No masses, infiltrates, or pneumothorax. No pleural effusions or pleura l calcifications. There is a small pneumatocele in the left lower lobe. AORTA AND GREAT VESSELS: No aneurysm. Contrast bolus not optimized for the aorta. HEART: No pericardial effusion. No significant coronary artery calcifications. PULMONARY ARTERIES: No emboli visualized in the main pulmonary arteries or the segmental branches. HILAR AND MEDIASTINAL STRUCTURES: No identified masses or abnormal nodes. HARDWARE: None in the chest. UPPER ABDOMEN: No significant findings. Limited exam. THYROID AND OTHER SOFT TISSUES: No masses. No adenopathy. BONES: No acute or significant finding. 3D MIPS: Confirm above findings. OTHER: No other significant finding. IMPRESSION: NORMAL CTA OF THE CHEST. NO PULMONARY EMBOLI. COMMENT: Quality ID # [id number]: Final reports with documentation of one or more dose reduction techniques (e.g., Automated exposure control, adjustment of the mA and/or kV according to patient size, use of iterative reconstruction technique) TECHNICAL DOCUMENTATION: JOB ID: [id number] 2010 [employer]- All Rights Reserved Reading location - IP/workstation name: [email or web address]
[2019-09-14 16:10] VITALS: BP 119/86
--- NOTE | 2019-09-14 17:29 | EKG REPORT ---
SEVERITY:- NORMAL ECG - SINUS RHYTHM : Confirmed by: Florencia Russo MD 14-Sep-2019 17:28:23
== END 2019-09-14 16:09 | disposition home or self-care (01) ==
LOC: ER 09:23
DX: R07.89 Other chest pain (principal); F41.9 Anxiety disorder, unspecified; R05 Cough; R06.02 Shortness of breath; R10.13 Epigastric pain; Z79.899 Other long term (current) drug therapy; Z88.8 Allergy status to other drugs, medicaments and biological substances
CPT/HCPCS: 36415; 71046; 71275; 80053; 84484; 84703; 85025; 85379; 85610; 93005; 93010; 99285